=== PATIENT | male | born 1975 ===

== ENCOUNTER 2023-02-10 11:03 | Emergency (ER) | payer BC ==
[2023-02-10] MEDS ORDERED: Lidocaine 1% 10 ML MDV INJECT ONE (11:15)
[2023-02-10] MEDS ORDERED: Diphtheria,Pertussis(Acell),Tetanus Vaccine 0.5 ML Syringe IM ONE (11:15)
== END 2023-02-10 12:38 | disposition home or self-care (01) ==
LOC: MERGE 11:03 → JD.ED 11:03
DX: S81.811A Laceration without foreign body, right lower leg, initial encounter (principal); Z88.5 Allergy status to narcotic agent; Z88.2 Allergy status to sulfonamides; Z23 Encounter for immunization; W26.9XXA Contact with unspecified sharp object(s), initial encounter
CPT/HCPCS: 12002; 90471; 90715; 99282-25; 99283; J3490